=== PATIENT | female | born 1955 | race Caucasian/White ===

== ENCOUNTER → 2016-03-26 | Outpatient (CLI) | payer OTHER ==
--- NOTE | 2016-03-26 14:24 | DX ---
Chest, PA and Lateral History: Mcintosh pop in vicinity of right scapula yesterday while adjusting ski boots, cough since Than ksgiving Comparison: March 22, 2010 Findings: Lungs are clear, without infiltrate or consolidation. Heart size is normal. There is no anju nopathy or mass lesion. There is no pleural effusion or pneumothorax. Bones are unremarkable for age. There is some mild degenerative narrowing of the right AC joint. A thoracic spine looks normal. Impression: 1. No evidence for pneumonia or source for chronic cough identified. 2. No source for right periscapular symptoms identified.
== END ==
LOC: BMCIMAGING 14:06
PROVIDERS: ATTEND Family Medicine
DX: R05 Cough (principal); M25.511 Pain in right shoulder; X50.0XXA Overexertion from strenuous movement or load, initial encounter

== ENCOUNTER → 2016-09-23 | Outpatient (CLI) | payer OTHER | LOC: BMCIMAGING 11:48 | PROVIDERS: ATTEND Family Medicine | DX: M25.571 Pain in right ankle and joints of right foot (principal); M25.562 Pain in left knee ==

== ENCOUNTER → 2016-09-28 | Outpatient (CLI) | payer OTHER | LOC: BMCIMAGING 13:53 | PROVIDERS: ATTEND Internal Medicine | DX: Z12.31 Encounter for screening mammogram for malignant neoplasm of breast (principal) | CPT/HCPCS: G0202 ==

== ENCOUNTER → 2016-09-30 | Outpatient (CLI) | payer OTHER | LOC: BMCIMAGING 14:19 | PROVIDERS: ATTEND Internal Medicine | DX: M81.0 Age-related osteoporosis without current pathological fracture (principal) ==

== ENCOUNTER → 2017-02-06 | Outpatient (CLI) | payer OTHER | LOC: BMCIMAGING 09:09 | PROVIDERS: ATTEND Family Medicine | DX: S91.301A Unspecified open wound, right foot, initial encounter (principal); M85.80 Other specified disorders of bone density and structure, unspecified site; M19.071 Primary osteoarthritis, right ankle and foot ==

== ENCOUNTER → 2017-04-12 | Outpatient (CLI) | payer OTHER | LOC: BMCIMAGING 09:15 | PROVIDERS: ATTEND Podiatrist Foot & Ankle Surgery | DX: M79.671 Pain in right foot (principal); S86.311A Strain of muscle(s) and tendon(s) of peroneal muscle group at lower leg level, right leg, initial encounter; R93.6 Abnormal findings on diagnostic imaging of limbs ==